=== PATIENT | male | born 1990 | race Caucasian/White ===

== ENCOUNTER 2017-03-25 09:48 | Emergency (ER) | payer OTHER ==
[~2017-03-25] VITALS: Ht 170.2 cm; Wt 126.4 kg
[2017-03-25 09:52] VITALS: Ht 170.2 cm; Wt 126.4 kg
[2017-03-25] MEDS ORDERED: IBUP-1542 PO (11:27)
[2017-03-25] MEDS ORDERED: AZIT500T3 PO (11:27)
[2017-03-25] MEDS ORDERED: ACET500C5 PO (11:27)
[2017-03-25] MEDS ORDERED: predniSONE 20 MG TAB PO ONE (11:30)
[2017-03-25] MEDS ORDERED: UDROBDM PO (11:30)
--- NOTE | 2017-03-25 11:36 | ERD ---
ER Documentation Chief Complaint Chief Complaint cough x 1 week HPI This is a 26-year-old male presents the emergency department today complaining of cough for the past week. states he also has some pain on the left side of his neck. States he has a sore throat. States he is taking TheraFlu. Denies any fevers or chills. ROS All systems reviewed and are negative except as per history of present illness. Medications Home Meds Active Scripts Guaifenesin-Dextromethorphan* (Robitussin* DM) 100MG/10MG/5ML Syrup, 10 ML PO Q6H Y for COUGH for 5 Days, ML Prov:JEISON WAITEC 03/25/17 Acetaminophen* (Tylophen*) 500 Mg Capsule, 1 CAP PO Q6H Y for PAIN AND OR ELEVATED TEMP, #30 CAP Prov:JEISON WAITEC 03/25/17 Ibuprofen* (Motrin*) 600 Mg Tab, 600 MG PO Q6, #30 TAB Prov:JEISON WAITEC 03/25/17 Azithromycin* (Zithromax*) 500 Mg Tablet, 500 MG PO DAILY for 5 Days, TAB Prov:JEISON WAITEC 03/25/17 Allergies Allergies: Coded Allergies: No Known Allergy (Unverified , 03/25/17) PMhx/Soc Medical and Surgical Hx: pt denies Medical Hx, pt denies Surgical Hx Hx Alcohol Use: No Hx Substance Use: No Hx Tobacco Use: No Smoking Status: Never smoker Physical Exam Vitals Vital Signs Date Time Temp Pulse Resp B/P Pulse Ox O2 Delivery O2 Flow Rate FiO2 03/25/17 09:52 98.6 90 18 134/64 96 Physical Exam Const: obese, NAD Head: Atraumatic Eyes: Normal Conjunctiva ENT: Ears TMs normal. Nose no drainage. Throat with erythema mild exudate and tender swollen lymph nodes left side cervical and submandibular chain Neck: Full range of motion..~ No meningismus. Resp: Clear to auscultation bilaterally Cardio: Regular rate and rhythm, no murmurs Abd: Soft, non tender, non distended. Normal bowel sounds Skin: No petechiae or rashes Back: No midline or flank tenderness Ext: No cyanosis, or edema Neur: Awake and alert Psych: Normal Mood and Affect Results 24 hrs Current Medications Medications (Trade) Dose Ordered Sig/Yosef Route PRN Reason Start Time Stop Time Status Last Admin Dose Admin Prednisone (Prednisone) 40 mg ONCE ONCE PO 03/25/17 11:30 03/25/17 11:31 DC 03/25/17 11:15 Procedures/MDM This a 26-year-old male presents the emergency department today complaining of cough for the past week an pain on the left side of his neck. Is afebrile and otherwise well-appearing. His lungs are clear. He did have some erythema in his throat with mild exudate and tender swollen lymph nodes. His symptoms at this time is consistent with lymphadenitis and cough. Do not feel the patient requires imaging or chest x-ray at this time. Low suspicion for retropharyngeal abscess or peritonsillar abscess. I did discuss the patient with . he recommended giving the patient a low dose of steroids here in the emergency department. I will treat him with azithromycin for 5 days that would cover him for pneumonia or strep pharyngitis. Low suspicion for PE, abscess, pleural effusion or pneumothorax. Patient is talkative in the exam room. Do not feel he requires further workup or imaging at this time. She was given a prescription for Tylenol, Motrin, Robitussin and azithromycin At this time the patient is stable for discharge and outpatient management. Patient should follow up with their PCP in the next 1-2 days. They may return to the emergency department sooner for any persistent or worsening of symptoms. Patient understood and agreed with the plan. Departure Diagnosis: Primary Impression: Cough Additional Impression: Lymphadenitis Condition: Fair Patient Instructions: Self-Care for Sore Throats, When Your Child Has Swollen Lymph Nodes Referrals: [facility] YOU HAVE RECEIVED A MEDICAL SCREENING EXAM AND THE RESULTS INDICATE THAT YOU DO NOT HAVE A CONDITION THAT REQUIRES URGENT TREATMENT IN THE EMERGENCY DEPARTMENT. FURTHER EVALUATION AND TREATMENT OF YOUR CONDITION CAN WAIT UNTIL YOU ARE SEEN IN YOUR DOCTORS OFFICE WITHIN THE NEXT 1-2 DAYS. IT IS YOUR RESPONSIBILITY TO MAKE AN APPOINTMENT FOR FOLOW-UP CARE. IF YOU HAVE A PRIMARY DOCTOR --you should call your primary doctor and schedule an appointment IF YOU DO NOT HAVE A PRIMARY DOCTOR YOU CAN CALL OUR PHYSICIAN REFERRAL HOTLINE AT IF YOU CAN NOT AFFORD TO SEE A PHYSICIAN YOU CAN CHOSE FROM THE FOLLOWING [facility] [id number] [facility] [address] [facility] [facility] [address] [facility] [facility] [address] [facility]. [facility] [address] [facility]. [facility] [address] Additional Instructions: Call your primary care doctor TOMORROW for an appointment during the next 1-2 days.See the doctor sooner or return here if your condition worsens before your appointment time. Take antibiotics as prescribed. Take Tylenol every 4 hours or Motrin every 6 hours for pain. Take Robitussin for cough. Stay well-hydrated with plenty of clear fluid JEISON WAITE PA-C Mar 25, 2017 11:36
[2017-03-25 11:43] VITALS: BP 130/78; PULSE 85; RESP 17
== END 2017-03-25 11:56 | disposition home or self-care (01) ==
LOC: FTE 09:48
DX: R05 Cough (principal); I88.9 Nonspecific lymphadenitis, unspecified
CPT/HCPCS: J7512; Z7502; 99283

== ENCOUNTER 2018-09-06 10:07 | Emergency (ER) | payer OTHER ==
[~2018-09-06] VITALS: Ht 172.7 cm; Wt 129.0 kg
[~2018-09-06 10:07] MED LIST: ACET500C5 PO; AZIT500T3 PO; GUAI5SYR2 PO; IBUP-1542 PO
[2018-09-06 10:08] VITALS: Ht 172.7 cm; Wt 129.0 kg
--- NOTE | 2018-09-06 12:00 | ERD ---
ER Documentation Chief Complaint Chief Complaint LEFT FOOT SWOLLEN SINCE SUNDAY NIGHT DENIES ANY FALL OR INJURY HPI 28-year-old male presents with complaint of pain and swelling to left foot since Sunday. Denies any history of trauma. Denies any fevers, chills, history of clotting disorder, numbness, tingling, impaired range of motion. Denies any history of gout. States that the pain is intermittent. When the pain is occurring it feels likes a stabbing sharp pain. Denies any treatments. ROS All systems reviewed and are negative except as per history of present illness. Medications Home Meds Active Scripts Hydrocodone/Acetaminophen ([place] 5-325 Tablet) 1 Each Tablet, 1 TAB PO Q6H PRN for PAIN, #15 TAB Prov:WEN GONZALEZ 09/06/18 Colchicine* (Colcrys*) 0.6 Mg Tablet, 0.6 MG PO BID for GOUT for 3 Days, TAB Prov:WEN GONZALEZ 09/06/18 Guaifenesin-Dextromethorphan* (Robitussin* DM) 100MG/10MG/5ML Syrup, 10 ML PO Q6H PRN for COUGH for 5 Days, ML Prov:JEISON WAITEC 03/25/17 Acetaminophen* (Tylophen*) 500 Mg Capsule, 1 CAP PO Q6H PRN for PAIN AND OR ELEVATED TEMP, #30 CAP Prov:JEISON WAITEC 03/25/17 Ibuprofen* (Motrin*) 600 Mg Tab, 600 MG PO Q6, #30 TAB Prov:JEISON AWITEC 03/25/17 Azithromycin* (Zithromax*) 500 Mg Tablet, 500 MG PO DAILY for 5 Days, TAB Prov:JEISON WAITEC 03/25/17 Allergies Allergies: Coded Allergies: No Known Allergy (Unverified , 09/06/18) PMhx/Soc Medical and Surgical Hx: pt denies Medical Hx, pt denies Surgical Hx Hx Alcohol Use: No Hx Substance Use: No Hx Tobacco Use: No Smoking Status: Never smoker FmHx Family History: No diabetes, No coronary disease, No other Physical Exam Vitals Vital Signs Date Temp Pulse Resp B/P (MAP) Pulse Ox O2 O2 Flow FiO2 Time Delivery Rate 09/06/18 98.2 92 18 174/97 100 10:08 (122) Physical Exam Const: No acute distress Head: Atraumatic Eyes: Normal Conjunctiva ENT: Normal External Ears, Nose and Mouth. Neck: Full range of motion. No meningismus. Resp: Clear to auscultation bilaterally Cardio: Regular rate and rhythm, no murmurs Abd: Soft, non tender, non distended. Normal bowel sounds Skin: No petechiae or rashes Back: No midline or flank tenderness Left foot: There is some edema noted that the dorsal aspect of left foot. There is no ecchymosis or underlying bony deformity noted. There is tenderness to palpation approximately the third metatarsal aspect. Distal sensation intact. Distal pulses intact. Full range of motion. Compartments are soft and warm. Overlying skin is intact. Neur: Awake and alert Psych: Normal Mood and Affect Results 24 hrs Laboratory Tests Test 09/06/18 12:13 Uric Acid 9.9 mg/dl Current Medications Medications Dose Sig/Yosef Start Time Status Last (Trade) Ordered Route PRN Stop Time Admin Dose Reason Admin Ketorolac 60 mg ONCE STAT 09/06/18 DC Tromethamine IM 12:53 (Toradol) 09/06/18 12:55 1 tab ONCE ONCE 09/06/18 Acetaminophen PO 13:00 / 09/06/18 13:01 Hydrocodone Bitart ([place] ()) Procedures/MDM DIAGNOSTIC IMAGING REPORT Patient: JUAN KELLEY : 1990 Age: 28 Sex: M MR #: [id number] DOS: 09/06/18 1152 Ordering MD: WEN GONZALEZ Location: [facility] Room/Bed: PROCEDURE: XR Left Foot. CLINICAL INDICATION: pain, swelling TECHNIQUE: AP, lateral and oblique views of the left foot was obtained. The images were reviewed on a PACS workstation. COMPARISON: CR FEET 09/06/2014 FINDINGS: No acute fracture or dislocation. No significant arthropathy or erosive changes. Severe forefoot soft tissue swelling. No foreign body or soft tissue gas. IMPRESSION: Severe soft tissue swelling without evidence of acute fracture. RPTAT:AAJJ Kartik San Physician Date Time Electronically viewed and signed by Kartik San Physician on 09/06/2018 12:24 RF/ CC: LELANDFANYWEN WILSON [phone] MDM: Foot x-ray was negative. Uric acid was elevated so patient most likely suffering from acute attack of gout. Patient given IM Toradol and Mokena in the ER. Patient discharged with 3-day course of colchicine as well as Mokena for breakthrough pain. Patient advised that he needs to follow-up with primary care as this is a chronic condition and he might take allopurinol. I have low suspicion for neurovascular compromise, compartment syndrome, fracture, osteomyelitis, septic joint, or other emergent condition. Patient discharged with strict ER precautions. Patient advised to follow up with PMD. All questions answered at discharge. Departure Diagnosis: Primary Impression: Gout Gout site: foot Gout etiology: unspecified cause Chronicity: acute Laterality: left Qualified Codes: M10.9 - Gout, unspecified Condition: Stable ARCENIOESTELLA WILSONEL September 06, 2018 12:00
[2018-09-06] MEDS ORDERED: COLC0.6T6 PO (12:52)
[2018-09-06] MEDS ORDERED: HYDR-4011 PO (12:52)
[2018-09-06] MEDS ORDERED: KETOROLAC 60 MG INJ IM STA (12:53)
[2018-09-06] MEDS ORDERED: HYDROCODONE/APAP (10/325) TAB PO ONE (13:00)
[2018-09-06 13:41] VITALS: BP 134/91; PULSE 74; RESP 19
== END 2018-09-06 13:42 | disposition home or self-care (01) ==
LOC: FTE 10:07
DX: M10.9 Gout, unspecified (principal)
CPT/HCPCS: 36415; 73630; 84560; 96372; J1885; Z7502; Z7610